=== PATIENT | female | born 1980 | race Caucasian/White ===

== ENCOUNTER 2017-06-05 15:23 | Emergency (ER) | payer BC, OTHER ==
[2017-06-05] MEDS ORDERED: PROTONIX 40 MG IV IV ONE ×2 (16:25→17:07)
[2017-06-05] MEDS ORDERED: Zofran 4 MG/2 ML VIAL IV ONE (16:25)
[2017-06-05] MEDS ORDERED: MORPHINE SULFATE 4 MG INJ IV ONE (16:25)
[2017-06-05] MEDS ORDERED: Sodium Chloride 0.9% 1000 ML 1,000 ML IV STA (16:25)
--- NOTE | 2017-06-05 16:31 | ERPHSYRPT ---
- History of Present Illness Time Seen by Provider: 06/05/17 16:21 Historian: patient, family (mother) Patient Subjective Stated Complaint: pain in ribs and stomach , states this happens from time to time had gastric bypass feb 2013 since then from time to time she gets this pain in upper abdomen under ribs Triage Nursing Assessment: pt alert and oriented x3, ambualtes by self gait is steady, , pupils perrla3, lung sounds clear, bowel sounds present x4, tender to palpation bilateral upper quad of abdomen, skin warm dery and itnact no other abnormalities noted. Physician History: CC: abd pain Hx: Upper abd pain since early this AM. S/P remote bariatric surgery per Dr Mcpherson at [facility]. She has had upper abd pain since this AM. No vomiting. Some nausea. No diarrhea. No chest pain. Not short of breath. Denies alcohol use. She had prior bariatric surgery, cholecystectomy, and hysterectomy. She has had this pain in the past but did not seek attn. She does have hx of PUD. Not currently on ulcer medication. Normal bowel movements. No blood in stool. Normal urination. Timing/Duration: today (AM) Pain Radiation: epigastric Allergies/Adverse Reactions: No Known Drug Allergies Allergy (Unverified 08/19/13 02:26) Hx Tetanus, Diphtheria Vaccination/Date Given: Yes Hx Influenza Vaccination/Date Given: No Hx Pneumococcal Vaccination/Date Given: No Immunizations Up to Date: Yes - Review of Systems Constitutional: Malaise, No Fever, No Chills Eyes: No Symptoms Ears, Nose, & Throat: No Symptoms Respiratory: No Cough, No Dyspnea Cardiac: No Chest Pain Abdominal/Gastrointestinal: Abdominal Pain, Nausea, No Vomiting, No Diarrhea Genitourinary Symptoms: No Dysuria, No Musculoskeletal: No Back Pain Skin: No Rash Neurological: No Headache All Other Systems: Reviewed and Negative - Past Medical History Pertinent Past Medical History: No Neurological History: No Pertinent History ENT History: No Pertinent History Cardiac History: No Pertinent History Respiratory History: No Pertinent History Endocrine Medical History: No Pertinent History Musculoskeletal History: No Pertinent History GI Medical History: Other History: No Pertinent History Psycho-Social History: No Pertinent History Female Reproductive Disorders: No Pertinent History Other Medical History: GASTRIC BYPASS - Past Surgical History Past Surgical History: Yes (see history of present illness) Neuro Surgical History: No Pertinent History Cardiac: No Pertinent History Respiratory: No Pertinent History Gastrointestinal: No Pertinent History Genitourinary: No Pertinent History Musculoskeletal: No Pertinent History Female Surgical History: Hysterectomy - Social History Smoking Status: Never smoker Exposure to second hand smoke: No Drug Use: none Patient Lives Alone: No - Female History Hx Now: (Hysterectomy) - Nursing Vital Signs Nursing Vital Signs: Initial Vital Signs Temperature 98.2 F 06/05/17 15:23 Pulse Rate 62 06/05/17 15:23 Respiratory Rate 18 06/05/17 15:23 Blood Pressure 100/79 06/05/17 15:23 O2 Sat by Pulse Oximetry 99 06/05/17 15:23 Pain Scale Pain Intensity 7 - Physical Exam General Appearance: alert Eye Exam: PERRL/EOMI Ears, Nose, Throat Exam: normal ENT inspection, moist mucous membranes Neck Exam: normal inspection, non-tender, supple Respiratory Exam: normal breath sounds, lungs clear Cardiovascular Exam: regular rate/rhythm, bradycardia, No murmur Gastrointestinal/Abdomen Exam: soft, tenderness (left and upper abdomen), No mass Back Exam: normal inspection, No CVA tenderness Extremity Exam: normal inspection, normal range of motion Neurologic Exam: alert, oriented x 3, cooperative, sensation nml, No motor deficits Skin Exam: warm, dry, No rash SpO2 Interpretation: normal SpO2: 99 Oxygen Delivery: Room Air - Course Nursing assessment & vital signs reviewed: Yes Ordered Tests: Active Orders 24 hr Category Date Time Status Clean Catch Urine Specimen STAT Care 06/05/17 16:25 Active EKG-ER Only STAT Care 06/05/17 16:25 Active IV Insertion STAT Care 06/05/17 16:25 Active NPO (ED) STAT Care 06/05/17 16:25 Active ABDOMEN AND PELVIS W CONTRAST [CT] Stat Exams 06/05/17 18:06 Taken CBC W DIFF Stat Lab 06/05/17 16:55 Completed CMP Stat Lab 06/05/17 16:55 Completed LIPASE Stat Lab 06/05/17 16:55 Completed Lactic Acid Stat Lab 06/05/17 16:55 Completed UA W/RFX UR CULTURE Stat Lab 06/05/17 18:12 Completed Medication Summary Discontinued Medications Generic Name Dose Route Start Last Admin Trade Name Freq PRN Reason Stop Dose Admin Sodium Chloride 1,000 mls @ 999 mls/hr 06/05/17 16:25 06/05/17 17:11 Sodium Chloride 0.9% 1000 Ml IV 06/05/17 17:25 999 mls/hr .Q1H1M STA Administration Sodium Chloride Confirm 06/05/17 17:07 Sodium Chloride 0.9% 1000 Ml Administered 06/05/17 17:08 Dose 1,000 mls @ ud .ROUTE .STK-MED ONE Morphine Sulfate 4 mg 06/05/17 16:25 06/05/17 17:12 Morphine Sulfate 4 Mg Inj IV 06/05/17 16:26 4 mg STAT ONE Administration Morphine Sulfate Confirm 06/05/17 17:07 Morphine Sulfate 4 Mg Inj Administered 06/05/17 17:08 Dose 4 mg .ROUTE .STK-MED ONE Morphine Sulfate Confirm 06/05/17 18:01 Morphine Sulfate 4 Mg Inj Administered 06/05/17 18:02 Dose 4 mg .ROUTE .STK-MED ONE Ondansetron HCl 4 mg 06/05/17 16:25 06/05/17 17:12 Zofran 4 Mg/2 Ml Vial IV 06/05/17 16:26 4 mg STAT ONE Administration Ondansetron HCl Confirm 06/05/17 17:07 Zofran 4 Mg/2 Ml Vial Administered 06/05/17 17:08 Dose 4 mg .ROUTE .STK-MED ONE Ondansetron HCl Confirm 06/05/17 17:43 Zofran 4 Mg/2 Ml Vial Administered 06/05/17 17:44 Dose 4 mg .ROUTE .STK-MED ONE Pantoprazole Sodium 40 mg 06/05/17 16:25 06/05/17 17:12 Protonix 40 Mg Iv IV 06/05/17 16:26 40 mg STAT ONE Administration Pantoprazole Sodium Confirm 06/05/17 17:07 Protonix 40 Mg Iv Administered 06/05/17 17:08 Dose 40 mg IV .STK-MED ONE Lab/Rad Data: Laboratory Result Diagrams 06/05/17 16:55 06/05/17 16:55 Laboratory Results 06/05/17 06/05/17 06/05/17 Range/Units 18:12 16:55 16:55 WBC (4.0-10.5) K/mm3 RBC (4.1-5.4) M/mm3 Hgb (12.0-16.0) gm/dl Hct (35-47) % MCV (78-100) fl MCH (26-32) pg MCHC (32-36) g/dl RDW (11.5-14.0) % Plt Count (150-450) K/mm3 MPV (6-9.5) fl Gran % (36.0-66.0) % Lymphocytes % (24.0-44.0) % Monocytes % (0.0-12.0) % Eosinophils % (0.00-5.0) % Basophils % (0.0-0.4) % Basophils # (0-0.4) Sodium 142 (136-145) mEq/L Potassium 3.2 L (3.5-5.1) mEq/L Chloride 107 (98-107) mEq/L Carbon Dioxide 26.3 (21-32) mEq/L Anion Gap 11.6 (5-15) MEQ/L BUN 10 (9-20) mg/dL Creatinine 0.87 (0.55-1.30) mg/dl Estimated GFR > 60 ML/MIN Glucose 112 H (70-110) MG/DL Lactic Acid 0.8 (0.4-2.0) Calcium 8.7 (8.5-10.1) mg/dL Total Bilirubin 0.40 (0.2-1.0) mg/dL AST 14 L (15-37) U/L ALT 13 (12-78) U/L Alkaline Phosphatase 71 (46-116) U/L Serum Total Protein 6.4 (6.4-8.2) gm/dL Albumin 3.7 (3.4-5.0) g/dL Lipase 140 (73-393) U/L Ur Collection Type CCMS Urine Color YELLOW (YELLOW) Urine Appearance CLEAR (CLEAR) Urine pH 6.0 (5-6) Ur Specific [place] 1.010 (1.005-1.025) Urine Protein NEGATIVE (Negative) Urine Ketones NEGATIVE (NEGATIVE) Urine Blood NEGATIVE (0-5) [place]/ul Urine Nitrite NEGATIVE (NEGATIVE) Urine Bilirubin NEGATIVE (NEGATIVE) Urine Urobilinogen NORMAL (0-1) mg/dL Ur Leukocyte Esterase NEGATIVE (NEGATIVE) Urine Culture Reflexed NO (NO) Urine Glucose NEGATIVE (NEGATIVE) mg/dL Specimen Received 06-05-17 1830 06/05/17 Range/Units 16:55 WBC 5.3 (4.0-10.5) K/mm3 RBC 4.05 L (4.1-5.4) M/mm3 Hgb 12.7 (12.0-16.0) gm/dl Hct 39.1 (35-47) % MCV 96.5 (78-100) fl MCH 31.3 (26-32) pg MCHC 32.5 (32-36) g/dl RDW 12.5 (11.5-14.0) % Plt Count 229 (150-450) K/mm3 MPV 10.0 H (6-9.5) fl Gran % 59.4 (36.0-66.0) % Lymphocytes % 31.3 (24.0-44.0) % Monocytes % 6.2 (0.0-12.0) % Eosinophils % 2.4 (0.00-5.0) % Basophils % 0.7 (0.0-0.4) % Basophils # 0.04 (0-0.4) Sodium (136-145) mEq/L Potassium (3.5-5.1) mEq/L Chloride (98-107) mEq/L Carbon Dioxide (21-32) mEq/L Anion Gap (5-15) MEQ/L BUN (9-20) mg/dL Creatinine (0.55-1.30) mg/dl Estimated GFR ML/MIN Glucose (70-110) MG/DL Lactic Acid (0.4-2.0) Calcium (8.5-10.1) mg/dL Total Bilirubin (0.2-1.0) mg/dL AST (15-37) U/L ALT (12-78) U/L Alkaline Phosphatase (46-116) U/L Serum Total Protein (6.4-8.2) gm/dL Albumin (3.4-5.0) g/dL Lipase (73-393) U/L Ur Collection Type Urine Color (YELLOW) Urine Appearance (CLEAR) Urine pH (5-6) Ur Specific [place] (1.005-1.025) Urine Protein (Negative) Urine Ketones (NEGATIVE) Urine Blood (0-5) [place]/ul Urine Nitrite (NEGATIVE) Urine Bilirubin (NEGATIVE) Urine Urobilinogen (0-1) mg/dL Ur Leukocyte Esterase (NEGATIVE) Urine Culture Reflexed (NO) Urine Glucose (NEGATIVE) mg/dL Specimen Received - Progress Progress Note: 06/05/17 18:39 CT abd/pelvis: conrad 6:34 PM 06/05/2017: Compared to 10/26/11. Mild wall thickening descending, sigmoid, & rectum either incomplete distension vs colitis. No free fluid/air. Normal appy. Interval gastric bypass sx & cholecystectomy. Remaining abd/pel negative. 06/05/17 18:[address] Praful Mcpherson. Will release with PPI and office follow up. Counseled pt/family regarding: lab results, diagnosis, need for follow-up, rad results - Departure Time of Disposition: 18:54 Departure Disposition: Home Clinical Impression: Epigastric abdominal pain, Hx of bariatric surgery Condition: Fair Critical Care Time: No Referrals: LUKE STACY [Primary Care Provider] - ABEL MCPHERSON [NON-STAFF PHY W/O PRIVILEGES] - Instructions: Acute Abdomen (Belly Pain), Adult (DC) Additional Instructions: ABDOMINAL PAIN 1. There are several different causes for abdominal pain, some of which may not be able to be identified on initial examination. 2. The important thing to remember is that bodily functions can change in a short period of time. If you notice any of the following symptoms, return to the emergency department or consult your doctor immediately: A. Worsening pain or no improvement in the next 12 hours. B. Increasing, severe abdominal pain C. Blood in stool D. Black stools E. Persistent vomiting F. Fever or chills or other symptoms Rx protonix. Dukes diet. No driving tonite and stay with family. Call tomorrow to arrange follow up with Dr Mcpherson. Prescriptions: PANTOPRAZOLE 40 mg Tablet [Protonix 40MG Tablet] 40 mg PO QAM #30 tab
[2017-06-05] MEDS ORDERED: Zofran 4 MG/2 ML VIAL ONE ×2 (17:07→17:43)
[2017-06-05] MEDS ORDERED: Sodium Chloride 0.9% 1000 ML 1,000 ML ONE (17:07)
[2017-06-05] MEDS ORDERED: MORPHINE SULFATE 4 MG INJ ONE ×2 (17:07→18:01)
[2017-06-05 17:11] LABS: BASOPHIL % 0.7 % (0.0-0.4); Basophil (Absolute #) 0.04 (0-0.4); Eosinophil % 2.4 % (0.00-5.0); Eosinophil (Absolute #) 0.13 (0-0.5); Granulocyte Absolute (ANC) 3.17 (1.4-6.9); Granulocytes % 59.4 % (36.0-66.0); Hematocrit 39.1 % (35-47); Hemoglobin 12.7 gm/dl (12.0-16.0); Lymphocyte (Absolute #) 1.67 (1.0-4.6); Lymphocytes % 31.3 % (24.0-44.0); Mean Cell Volume 96.5 fl (78-100); Mean Corpuscular Hemoglobin 31.3 pg (26-32); Mean Corpuscular Hgb Concent. 32.5 g/dl (32-36); Monocyte (Absolute #) 0.33 (0.0-1.3); Monocytes % 6.2 % (0.0-12.0); Platelet Count 229 K/mm3 (150-450); Red Blood Count 4.05 M/mm3 (4.1-5.4); Red Cell Distribution Width 12.5 % (11.5-14.0); White Blood Count 5.3 K/mm3 (4.0-10.5)
[2017-06-05 17:40] LABS: ALBUMIN 3.7 g/dL (3.4-5.0); ALKALINE PHOSPHATASE 71 U/L (46-116); ANION GAP 11.6 MEQ/L (5-15); BLOOD UREA NITROGEN 10 mg/dL (9-20); CHLORIDE 107 mEq/L (98-107); Calcium 8.7 mg/dL (8.5-10.1); Carbon Dioxide 26.3 mEq/L (21-32); Creatinine 1 0.87 mg/dl (0.55-1.30); EST GLOMERULAR FILTRATION RATE > 60 ML/MIN; Glucose 112 MG/DL (70-110); LIPASE 140 U/L (73-393); Potassium 3.2 mEq/L (3.5-5.1); SGOT/AST 14 U/L (15-37); SGPT/ALT 13 U/L (12-78); SODIUM 142 mEq/L (136-145); Total Protein 6.4 gm/dL (6.4-8.2)
[2017-06-05 18:30] LABS: Appearance CLEAR (CLEAR); Bilirubin NEGATIVE (NEGATIVE); Blood NEGATIVE Ery/ul (0-5); Glucose NEGATIVE (NEGATIVE); Ketones NEGATIVE (NEGATIVE); Leukocyte Esterase NEGATIVE (NEGATIVE); Nitrite NEGATIVE (NEGATIVE); Protein,Urine Dip NEGATIVE (Negative); Urobilinogen NORMAL mg/dL (0-1)
[2017-06-05 18:53] VITALS: BP 96/63
[2017-06-05 19:00] VITALS: PULSE 62; O2SAT 100
--- NOTE | 2017-06-06 08:35 | XRAY ---
Indication: Upper abdominal pain. Multiple contiguous axial images obtained through the abdomen and pelvis using 80 cc Isovue 370 contrast and diluted Gastrografin. Comparison: CT renal stone study October 26, 2011. Lung bases are clear. Heart is not enlarged. Again small hiatal hernia. Interval gastric bypass surgery and cholecystectomy. Noncontrasted stomach appears unremarkable. Contrasted bowel loops appear nonobstructed. Descending colon, sigmoid, and rectum demonstrates mild circumferential wall thickening either incomplete distention versus colitis. No free fluid/air. Normal air-filled appendix. There has been hysterectomy. Remaining liver, pancreas, spleen, adrenal glands, kidneys, ureters, bladder, and aorta appear normal in CT appearance and attenuation. No pathologic retroperitoneal lymphadenopathy. Osseous structures intact. Impression: 1. Mild descending colon, sigmoid, and rectal wall thickening either incomplete distention versus colitis. 2. Small hiatal hernia. 3. Remaining CT abdomen/pelvis with contrast exam is negative. CT DI 12.29
== END 2017-06-05 19:05 | disposition home or self-care (01) ==
LOC: ED 15:23
DX: R10.13 Epigastric pain (principal); Z98.84 Bariatric surgery status
CPT/HCPCS: 36000; 36415; 74177; 80053; 81002; 83605; 83690; 85025; 96374; 96375; 99283; J2270; J2405

== ENCOUNTER 2018-06-26 07:02 | Emergency (ER) | payer BC, OTHER ==
[2018-06-26 09:19] LABS: Group A Strep NEGATIVE (NEGATIVE); INFLUENZA A NEGATIVE (NEGATIVE); INFLUENZA B NEGATIVE (NEGATIVE); RESPIRATORY SYNCTIAL VIRUS NEGATIVE (Negative)
[2018-06-26 09:25] VITALS: BP 104/70; PULSE 69; O2SAT 98
--- NOTE | 2018-06-26 09:31 | ERPHSYRPT ---
- History of Present Illness Source: patient Exam Limitations: no limitations Patient Subjective Stated Complaint: Pt states "I have head congesion, sinus, ears, my throat feels like it is touching." Triage Nursing Assessment: Pt alert and oriented x 3, skin pwd. Pt ambulates with an upright steady gait, able to speak in clear full sentences. PT in no apparent respiratory distress. Physician History: Pt is a 37 y/o female that presented to the ED, secondary to URI. Pt states, was seen by her PCP, and got Keflex, that she finished. Unfortunately the symptoms did not improve, and she does have sore throat, nasal congestion and cough. As she still not feeling well, she presented to the ER. Timing/Duration: week(s) Cough Quality/Degree: moderate, dry cough Possible Cause: no prior episodes Modifying Factors: Improves With: rest Associated Symptoms: cough, facial pain, headache, muscle aches, nasal congestion, sore throat Allergies/Adverse Reactions: No Known Drug Allergies Allergy (Verified 06/26/18 07:12) Hx Tetanus, Diphtheria Vaccination/Date Given: No Hx Influenza Vaccination/Date Given: No Hx Pneumococcal Vaccination/Date Given: No Immunizations Up to Date: Yes - Review of Systems Constitutional: Fatigue, Malaise Eyes: No Symptoms Ears, Nose, & Throat: Nose Congestion, Throat Pain Respiratory: Cough Cardiac: No Chest Pain, No Edema, No Syncope Abdominal/Gastrointestinal: No Abdominal Pain, No Nausea, No Vomiting, No Diarrhea Genitourinary Symptoms: No Dysuria Musculoskeletal: No Back Pain, No Neck Pain Neurological: No Dizziness, No Focal Weakness, No Sensory Changes - Past Medical History Pertinent Past Medical History: No Neurological History: No Pertinent History ENT History: No Pertinent History Cardiac History: No Pertinent History Respiratory History: No Pertinent History Endocrine Medical History: No Pertinent History Musculoskeletal History: No Pertinent History GI Medical History: Other History: No Pertinent History Psycho-Social History: No Pertinent History Female Reproductive Disorders: No Pertinent History Other Medical History: GASTRIC BYPASS - Past Surgical History Past Surgical History: Yes (see history of present illness) Neuro Surgical History: No Pertinent History Cardiac: No Pertinent History Respiratory: No Pertinent History Gastrointestinal: No Pertinent History Genitourinary: No Pertinent History Musculoskeletal: No Pertinent History Female Surgical History: Hysterectomy - Social History Smoking Status: Never smoker Exposure to second hand smoke: No Drug Use: none Patient Lives Alone: No - Female History Hx Last Menstrual Period: hysterectomy Hx Now: No - Nursing Vital Signs Nursing Vital Signs: Initial Vital Signs Temperature 99.2 F 06/26/18 07:08 Pulse Rate 66 06/26/18 07:08 Respiratory Rate 18 06/26/18 07:08 Blood Pressure 119/83 06/26/18 07:08 O2 Sat by Pulse Oximetry 100 06/26/18 07:08 Pain Scale Pain Intensity 4 - Physical Exam General Appearance: no apparent distress, alert Eye Exam: PERRL/EOMI, eyes nml inspection Ears, Nose, Throat Exam: pharynx normal, moist mucous membranes Neck Exam: normal inspection, non-tender, supple, full range of motion Respiratory Exam: normal breath sounds, lungs clear, No respiratory distress Cardiovascular Exam: regular rate/rhythm, normal heart sounds Gastrointestinal/Abdomen Exam: soft, No tenderness Extremity Exam: normal inspection, normal range of motion Neurologic Exam: alert, oriented x 3, cooperative, normal mood/affect, sensation nml, No motor deficits SpO2: 98 - Course Nursing assessment & vital signs reviewed: Yes Lab/Rad Data: Laboratory Results 06/26/18 Range/Units 08:36 Influenza Type A Ag NEGATIVE (NEGATIVE) Influenza Type B Ag NEGATIVE (NEGATIVE) RSV (PCR) NEGATIVE (Negative) Group A Strep Antibody NEGATIVE (NEGATIVE) - Progress Progress: unchanged Air Movement: good Progress Note: 06/26/18 09:31 Pt was examined, and had no exudates, or facial/sinuses tenderness on palpation. Her lungs were CTA, and PE was unremarkable. Pt had respiratory pannel done, and strep swab. All were negative. Pt was informed, that she has viral illness, and should drink plenty of fluids, and use OTC meds for symptoms relief. Pt should f/u with her PCP. Will see patient in: office Counseled pt/family regarding: need for follow-up - Departure Time of Disposition: 09:34 Departure Disposition: Home Clinical Impression: Viral respiratory illness Condition: Stable Critical Care Time: No Referrals: LUKE STACY [Primary Care Provider] - Additional Instructions: Pt should drink plenty of fluids and use OTC meds for symptoms relief. F/U with PCP.
== END 2018-06-26 09:58 | disposition home or self-care (01) ==
LOC: ED 07:02
DX: J06.9 Acute upper respiratory infection, unspecified (principal)
CPT/HCPCS: 87631; 87651; 99283

== ENCOUNTER 2019-03-08 18:55 | Emergency (ER) | payer BC, OTHER ==
--- NOTE | 2019-03-08 19:28 | ERPHSYRPT ---
- History of Present Illness Time Seen by Provider: 03/08/19 19:06 Source: patient Exam Limitations: no limitations Patient Subjective Stated Complaint: pt states, "My left foot was fine when I went to bed last night. During the middle of the night, my foot felt cold and I started having pain. The pain has gotten worse all day today. Pt states, " it feels like its asleep, feels cold to me (although its not) and just throbs." Triage Nursing Assessment: pt alert and oriented, ambulated to rm 6. Pt c/o lt foot pain, which occured around 0200 and has gotten progressively worse throughout the day. Pt has pain with wt bearing and also at rest. No bruises or edema noted, pt denies falling. Lungs clear, heart tones reg, abd soft with active bs x4 quad. Physician History: 38yo with h/o left foot surgery presented with sudden feeling of cold in left foot with pain since last night. reports feeling cold but is not cold to touch. denies any discoloration. shorp throbbing pain with partial relief after taking OTC pain meds and more with movements. denies any fall or trauma. pain is radiating to left ankle laterally without any associated swelling. no calf pain . Method of Injury: unknown Occurred: yesterday Quality: constant Severity of Pain-Max: moderate Severity of Pain-Current: moderate Lower Extremities Pain: foot: left, ankle: left Modifying Factors: Improves With: movement Allergies/Adverse Reactions: No Known Drug Allergies Allergy (Verified 06/26/18 07:12) Hx Tetanus, Diphtheria Vaccination/Date Given: Yes Hx Influenza Vaccination/Date Given: No Hx Pneumococcal Vaccination/Date Given: No Immunizations Up to Date: Yes - Review of Systems Constitutional: No Symptoms Eyes: No Symptoms Ears, Nose, & Throat: No Symptoms Respiratory: No Symptoms Cardiac: No Symptoms Abdominal/Gastrointestinal: No Symptoms Musculoskeletal: Joint Pain Skin: No Symptoms Neurological: No Symptoms Psychological: No Symptoms Hematologic/Lymphatic: No Symptoms - Past Medical History Pertinent Past Medical History: No Neurological History: No Pertinent History ENT History: No Pertinent History Cardiac History: No Pertinent History Respiratory History: No Pertinent History Endocrine Medical History: No Pertinent History Musculoskeletal History: No Pertinent History GI Medical History: Other History: No Pertinent History Psycho-Social History: No Pertinent History Female Reproductive Disorders: No Pertinent History Other Medical History: GASTRIC BYPASS - Past Surgical History Past Surgical History: Yes (see history of present illness) Neuro Surgical History: No Pertinent History Cardiac: No Pertinent History Respiratory: No Pertinent History Gastrointestinal: Cholecystectomy Genitourinary: No Pertinent History Musculoskeletal: Orthopedic Surgery Female Surgical History: Hysterectomy Other Surgical History: bunionectomy. gastric bypass - Social History Smoking Status: Never smoker Exposure to second hand smoke: No Drug Use: none Patient Lives Alone: No - Female History Hx Last Menstrual Period: hysterectomy Hx Now: No - Nursing Vital Signs Nursing Vital Signs: Initial Vital Signs Temperature 98.0 F 03/08/19 19:03 Pulse Rate 73 03/08/19 19:03 Respiratory Rate 15 03/08/19 19:03 Blood Pressure 114/73 03/08/19 19:03 O2 Sat by Pulse Oximetry 98 03/08/19 19:03 Pain Scale Pain Intensity 7 - Physical Exam General Appearance: no apparent distress Eyes, Ears, Nose, Throat Exam: normal ENT inspection Neck Exam: normal inspection, non-tender, supple Cardiovascular/Respiratory Exam: normal breath sounds, regular rate/rhythm Back Exam: normal inspection, normal range of motion Hips Exam: bilateral: non-tender Legs Exam: bilateral leg: non-tender, normal inspection, normal range of motion , no evidence of injury Knees Exam: bilateral knee: non-tender, normal inspection, normal range of motion Ankle Exam: right ankle: non-tender, left ankle: soft tissue tenderness ( lateral to calcaneus), bilateral ankle: normal inspection, normal range of motion, no evidence of injury, swelling Foot Exam: right foot: non-tender, left foot: abrasions/lacerations (medial foot and big toe area with no erythema/warm/swelling), bilateral foot: normal inspection, normal range of motion, no evidence of injury, soft tissue tenderness Neuro/Tendon Exam: normal sensation, normal motor functions, normal tendon functions Mental Status Exam: alert, oriented x 3, cooperative Skin Exam: normal color SpO2 Interpretation: normal SpO2: 98 O2 Delivery: Room Air - Course Nursing assessment & vital signs reviewed: Yes Ordered Tests: Active Orders 24 hr Category Date Time Status ANKLE (3 VIEWS) Stat Exams 03/08/19 19:20 Taken FOOT (MINIMUM 3 VIEWS) Stat Exams 03/08/19 19:20 Taken - Progress Progress: pain not gone completely, re-examined Progress Note: 03/08/19 19:29 r/o fx/dislocation. has no signs of gout/cellulitis / most probably some ligamentous strain and recommended roseline wrap with regular ibuprofen and outpatient follow up. offered pain meds but she refused. 03/08/19 20:14 Counseled pt/family regarding: diagnosis, need for follow-up, rad results - Departure Departure Disposition: Home Clinical Impression: Strain of left foot Qualifiers: Encounter type: initial encounter Qualified Code(s): S96.912A - Strain of unspecified muscle and tendon at ankle and foot level, left foot, initial encounter Condition: Stable Critical Care Time: No Referrals: LUKE STACY [Primary Care Provider] - Follow Up with PCP/3 days (may need referral for podiatry for re valuation if no improvement or if getting worse ) Instructions: Foot Sprain (DC) Additional Instructions: take tylenol/ibuprofen for pain. follow up with pcp for re evaluation early next week. may need to see your inpatient nursing aide if no improvement in few days . return for any worsening Prescriptions: Ibuprofen 600 mg PO Q6HPRN PRN 10 Days #20 tablet PRN Reason: Pain
[2019-03-08 20:28] VITALS: BP 104/79; PULSE 62; O2SAT 100
--- NOTE | 2019-03-09 08:50 | XRAY ---
Indication: Pain. No known injury. Comparison: None 3 views of the left ankle obtained. No bony, articular, or soft tissue abnormalities. Foot reported separately.
--- NOTE | 2019-03-09 08:50 | XRAY ---
Indication: Pain. No known injury. Comparison: None 3 nonweightbearing views of the left foot demonstrates 1st metatarsal bunionectomy with intact screw. No other bony, articular, or soft tissue abnormalities.
== END 2019-03-08 20:29 | disposition home or self-care (01) ==
LOC: ED 18:55
DX: S96.912A Strain of unspecified muscle and tendon at ankle and foot level, left foot, initial encounter (principal); M25.572 Pain in left ankle and joints of left foot
CPT/HCPCS: 73610; 73630; 99283

== ENCOUNTER 2020-09-22 17:50 | Emergency (ER) | payer BC, OTHER ==
[2020-09-22 18:04] VITALS: BP 115/79; PULSE 98; O2SAT 98
[2020-09-22] MEDS ORDERED: TORAdol 30 mg Injection IM ONE (18:23)
[2020-09-22] MEDS ORDERED: DECADRON 10MG INJ. PO ONE (18:24)
[2020-09-22] MEDS ORDERED: TORAdol 30 mg Injection ONE (18:27)
[2020-09-22] MEDS ORDERED: DECADRON 10MG INJ. ONE (18:27)
--- NOTE | 2020-09-22 18:35 | ERPHSYRPT ---
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 Patient states her job requires a lot of lifting twisting and pulling. Patient had symptoms yesterday. She saw her chiropractor. He diagnosed her with sciatica. Patient received a manipulation however this did not help. Patient took 400 mg of ibuprofen at 3 PM. Patient states the pain is primarily on the left buttock and radiates towards her left foot. Pain rated 8 out of 10. Pain worse with static positions and dynamic motions. Symptoms are mild to moderate in intensity. No change in bowel bladder function. No fever. No recent back procedure. No saddle anesthesia. Patient voices no other complaints or concerns at this time. She is otherwise healthy. Patient states she had a hysterectomy and is not worried about preg sravanthi. Timing/Duration: yesterday Method of Injury: unknown, other (Pain likely states stemming from repetitive motion.) Quality: aching Back Pain Location: lumbar spine Back Pain Radiation: feet (Pain radiates to her left foot.) Severity of Pain-Max: moderate Severity of Pain-Current: mild Modifying Factors: Improves With: movement Associated Symptoms: denies symptoms, No fever, No sweating, No urinary incontinence, No problems urinating, No light-headedness, No dizziness, No numbness in legs/feet, No weakness, No sensory/motor loss, No tingling in legs/feet, No muscle spasms Previous symptoms: other (Patient states she has history of intermittent low back pain.) Allergies/Adverse Reactions: No Known Drug Allergies Allergy (Verified 09/22/20 18:04) Home Medications: Prucalopride Succinate [Motegrity] 2 mg PO DAILY 06/08/21 [History] Hx Tetanus, Diphtheria Vaccination/Date Given: Yes Hx Influenza Vaccination/Date Given: No Hx Pneumococcal Vaccination/Date Given: No Travel Risk - International Travel Have you traveled outside of the country in past 3 weeks: No - Coronavirus Screening Are you exhibiting any of the following symptoms?: No Close contact with a COVID-19 positive Pt in past 14-21 Days: No - Vaccine Status Have you recieved a Covid-19 vaccination: Yes Propagation Worker: Moderna - Vaccination Dates Date of 2cond Vaccination (if applicable): 07/25/2020 - Review of Systems Constitutional: No Symptoms, No Fever, No Chills Eyes: No Symptoms Ears, Nose, & Throat: No Symptoms Respiratory: No Symptoms, No Cough, No Dyspnea Cardiac: No Symptoms, No Chest Pain, No Edema, No Syncope Abdominal/Gastrointestinal: No Symptoms, No Abdominal Pain, No Nausea, No Vomiting, No Diarrhea Genitourinary Symptoms: No Symptoms, No Dysuria Musculoskeletal: No Symptoms, No Back Pain, No Neck Pain Skin: No Symptoms, No Rash Neurological: No Symptoms, No Dizziness, No Focal Weakness, No Sensory Changes Psychological: No Symptoms Endocrine: No Symptoms Hematologic/Lymphatic: No Symptoms Immunological/Allergic: No Symptoms All Other Systems: Reviewed and Negative - Past Medical History Pertinent Past Medical History: Yes Neurological History: No Pertinent History ENT History: No Pertinent History Cardiac History: No Pertinent History Respiratory History: No Pertinent History Endocrine Medical History: No Pertinent History Musculoskeletal History: No Pertinent History GI Medical History: Other History: No Pertinent History Psycho-Social History: No Pertinent History Female Reproductive Disorders: No Pertinent History Other Medical History: GASTRIC BYPASS - Past Surgical History Past Surgical History: Yes (see history of present illness) Neuro Surgical History: No Pertinent History Cardiac: No Pertinent History Respiratory: No Pertinent History Gastrointestinal: Cholecystectomy Genitourinary: No Pertinent History Musculoskeletal: Orthopedic Surgery Female Surgical History: Hysterectomy Other Surgical History: bunionectomy. gastric bypass - Social History Smoking Status: Never smoker Exposure to second hand smoke: No Drug Use: none Patient Lives Alone: No - Female History Hx Now: No - Nursing Vital Signs Nursing Vital Signs: Initial Vital Signs Temperature 98.6 F 09/22/20 17:55 Pulse Rate 98 H 09/22/20 17:55 Blood Pressure 115/79 09/22/20 17:55 O2 Sat by Pulse Oximetry 98 09/22/20 17:55 Pain Scale Pain Intensity [] 8 Pain Intensity 8 - Physical Exam General Appearance: no apparent distress, alert Eye Exam: PERRL/EOMI, eyes nml inspection Neck Exam: normal inspection, non-tender, supple, full range of motion, No meningismus, No midline tenderness Respiratory Exam: normal breath sounds, lungs clear, No respiratory distress Cardiovascular Exam: regular rate/rhythm, normal heart sounds Gastrointestinal Exam: soft, No tenderness, No mass Extremity Exam: normal inspection, normal range of motion, No calf tenderness, No pedal edema Neurologic Exam: alert, oriented x 3, cooperative, steam setter II-XII nml as tested, normal mood/affect, sensation nml, other (Positive straight leg raise left lower extremity.), No motor deficits Skin Exam: normal color, warm, dry, No rash SpO2 Interpretation: normal SpO2: 98 O2 Delivery: Room Air - Course Nursing assessment & vital signs reviewed: Yes - Radiology Exams L-Spine X-ray Interpretation: Teleradiologist Report (Is. Levoscoliosis. Decreased lumbar spine intervertebral disc spaces.) Ordered Tests: Active Orders 24 hr Category Date Time Status LUMBAR LIMITED (2 OR 3 VIEWS) Stat Exams 09/22/20 18:22 Taken UA W/RFX UR CULTURE Stat Lab 09/22/20 18:26 Completed Medication Summary Discontinued Medications Generic Name Dose Route Start Last Admin Trade Name Bora PRN Reason Stop Dose Admin Dexamethasone Sodium Phosphate 10 mg 09/22/20 18:24 09/22/20 18:28 Decadron 10mg Inj. PO 09/22/20 18:25 10 mg STAT ONE Administration Dexamethasone Sodium Phosphate Confirm 09/22/20 18:27 Decadron 10mg Inj. Administered 09/22/20 18:28 Dose 10 mg .ROUTE .STK-MED ONE Ketorolac Tromethamine 30 mg 09/22/20 18:23 09/22/20 18:28 Toradol 30 Mg Injection IM 09/22/20 18:24 30 mg STAT ONE Administration Ketorolac Tromethamine Confirm 09/22/20 18:27 Toradol 30 Mg Injection Administered 09/22/20 18:28 Dose 30 mg .ROUTE .STK-MED ONE Lab/Rad Data: Laboratory Results 09/22/20 Range/Units 18:26 Urine Color YELLOW (YELLOW) Urine Appearance SLIGHTLY CLOUDY (CLEAR) Urine pH 5.0 (5-6) Ur Specific Howell 1.019 (1.005-1.025) Urine Protein NEGATIVE (Negative) Urine Ketones TRACE (NEGATIVE) Urine Blood NEGATIVE (0-5) Kenrick/ul Urine Nitrite NEGATIVE (NEGATIVE) Urine Bilirubin NEGATIVE (NEGATIVE) Urine Urobilinogen 2 (0-1) mg/dL Ur Leukocyte Esterase TRACE (NEGATIVE) Urine WBC (Auto) 3-5 (0-5) /HPF Urine RBC (Auto) NONE (0-2) /HPF U Epithel Cells (Auto) RARE (FEW) /HPF Urine Bacteria (Auto) RARE (NEGATIVE) /HPF Urine Mucus (Auto) SLIGHT (NEGATIVE) /HPF Urine Culture Reflexed NO (NO) Urine Glucose NEGATIVE (NEGATIVE) mg/dL - Progress Progress: improved - Departure Departure Disposition: Home Clinical Impression: Lumbosacral strain, Scoliosis, Sciatica of left side Condition: Stable Critical Care Time: No Referrals: MARII TESFA[facility] [Primary Care Provider] -
[2020-09-22 18:36] LABS: Appearance SLIGHTLY CLOUDY (CLEAR); Bacteria RARE /HPF (NEGATIVE); Bilirubin NEGATIVE (NEGATIVE); Blood NEGATIVE Ery/ul (0-5); Epithelial Cells RARE /HPF (FEW); Glucose NEGATIVE (NEGATIVE); Ketones TRACE (NEGATIVE); Leukocyte Esterase TRACE (NEGATIVE); Mucus SLIGHT /HPF (NEGATIVE); Nitrite NEGATIVE (NEGATIVE); Protein,Urine Dip NEGATIVE (Negative); Specific Gravity 1.019 (1.005-1.025); Urobilinogen 2 mg/dL (0-1)
--- NOTE | 2020-09-23 08:59 | XRAY ---
Indication: Low back pain radiating left leg. No known injury. Comparison: None 3 view lumbar spine demonstrates 5 lumbar segments with mild levorotoscoliosis, minimal L5-S1 disc space narrowing, mild diffuse fecal stasis, cholecystotomy clips, and left abdomen suture material. No other bony, articular, or soft tissue abnormalities.
== END 2020-09-22 19:54 | disposition home or self-care (01) ==
LOC: ED 17:50
DX: S39.012A Strain of muscle, fascia and tendon of lower back, initial encounter (principal); X50.1XXA Overexertion from prolonged static or awkward postures, initial encounter; Y93.89 Activity, other specified; Y92.89 Other specified places as the place of occurrence of the external cause; Y99.0 Civilian activity done for income or pay; M54.40 Lumbago with sciatica, unspecified side; M41.9 Scoliosis, unspecified
CPT/HCPCS: 72100; 81001; 96372; 99284; J1100; J1885

== ENCOUNTER 2023-01-04 21:04 | Emergency (ER) | payer OTHER ==
[2023-01-04 21:22] VITALS: RESP 16; TEMP 98.7
[2023-01-04] MEDS ORDERED: BENADRYL 25 MG CAPSULE PO ONE (21:25)
[2023-01-04] MEDS ORDERED: Pepcid 20 MG VIAL IV ONE ×2 (21:25→21:28)
[2023-01-04] MEDS ORDERED: solu-MEDROL 125 MG, Sterile H2O 10 ml 2 ML IV ONE ×2 (21:25)
[2023-01-04] MEDS ORDERED: BENADRYL 25 MG CAPSULE ONE (21:28)
[2023-01-04] MEDS ORDERED: solu-MEDROL ONE (21:28)
[2023-01-04] MEDS ORDERED: Sterile H2O 10 ml IJ ONE (21:28)
--- NOTE | 2023-01-04 22:33 | ERPHSYRPT ---
- History of Present Illness Time Seen by Provider: 01/04/23 21:20 Source: patient Exam Limitations: no limitations Patient Subjective Stated Complaint: Pt reports for the last 3-4 days she has been itching throughout entire body. Denies any new exposures/foods/etc. Took e quate cold and flu last week but has had med before without any problems. Triage Nursing Assessment: Pt alert and oriented x3. No apparent respiratory distress. Ambulated to ED cot without difficulty. Accompanied by mom. Pt observed to be itching legs continuously, red itch anand visualized on bilat lower extremities and upper extremities, no obvious hives/pustules seen. Physician History: Patient is a 42-year-old female presents to our ED for evaluation and treatment of pruritus x3 to 4 days. Patient has been self-medicating with Benadryl. Transient improvement however pruritus reoccurs. No obvious exposures. No new products. No intraoral lesions. No difficulty breathing. No wheezing. No abdominal cramping. Patient is itching throughout her body her trunk legs feet and hands. No other complaints. Mother at bedside. She voices no other complaints or concerns at this time. Portions of this note were created with voice recognition technology. There may be grammatical, spelling, punctuation or sound alike errors Timing/Duration: day(s) (3 days) Severity: moderate Modifying Factors: Improves With: medication (Benadryl) Associated Symptoms: denies symptoms Allergies/Adverse Reactions: No Known Drug Allergies Allergy (Verified 01/04/23 21:09) Hx Tetanus, Diphtheria Vaccination/Date Given: (unknown) Hx Influenza Vaccination/Date Given: No Hx Pneumococcal Vaccination/Date Given: No Travel Risk - International Travel Have you traveled outside of the country in past 3 weeks: No - Coronavirus Screening Are you exhibiting any of the following symptoms?: No Close contact with a COVID-19 positive Pt in past 14-21 Days: No - Vaccine Status Have you recieved a Covid-19 vaccination: Yes Hand Shaper: Moderna - Vaccination Dates Date of 2cond Vaccination (if applicable): ? - Review of Systems Constitutional: No Symptoms, No Fever, No Chills Eyes: No Symptoms Ears, Nose, & Throat: No Symptoms Respiratory: No Symptoms, No Cough, No Dyspnea Cardiac: No Symptoms, No Chest Pain, No Edema, No Syncope Abdominal/Gastrointestinal: No Symptoms, No Abdominal Pain, No Nausea, No Vomiting, No Diarrhea Genitourinary Symptoms: No Symptoms, No Dysuria Musculoskeletal: No Symptoms, No Back Pain, No Neck Pain Skin: No Symptoms, No Rash Neurological: No Symptoms, No Dizziness, No Focal Weakness, No Sensory Changes Psychological: No Symptoms Endocrine: No Symptoms Hematologic/Lymphatic: No Symptoms Immunological/Allergic: No Symptoms All Other Systems: Reviewed and Negative - Past Medical History Pertinent Past Medical History: Yes Neurological History: No Pertinent History ENT History: No Pertinent History Cardiac History: No Pertinent History Respiratory History: No Pertinent History Endocrine Medical History: No Pertinent History Musculoskeletal History: No Pertinent History GI Medical History: Other History: No Pertinent History Psycho-Social History: No Pertinent History Female Reproductive Disorders: No Pertinent History Other Medical History: GASTRIC BYPASS - Past Surgical History Past Surgical History: Yes (see history of present illness) Neuro Surgical History: No Pertinent History Cardiac: No Pertinent History Respiratory: No Pertinent History Gastrointestinal: Cholecystectomy Genitourinary: No Pertinent History Musculoskeletal: Orthopedic Surgery Female Surgical History: Hysterectomy Other Surgical History: bunionectomy. gastric bypass - Social History Smoking Status: Never smoker Exposure to second hand smoke: No Drug Use: none Patient Lives Alone: No - Female History Hx Last Menstrual Period: hysterectomy 2009 Hx Now: No - Nursing Vital Signs Nursing Vital Signs: Initial Vital Signs Temperature 98.7 F 01/04/23 21:09 Pulse Rate 86 01/04/23 21:09 Respiratory Rate 16 01/04/23 21:09 Blood Pressure 98/55 01/04/23 21:09 O2 Sat by Pulse Oximetry 97 01/04/23 21:09 Pain Scale Pain Intensity 0 - Physical Exam General Appearance: no apparent distress, alert Eye Exam: PERRL/EOMI, eyes nml inspection Ears, Nose, Throat Exam: normal ENT inspection, TMs normal, pharynx normal, moist mucous membranes Neck Exam: normal inspection, non-tender, supple, full range of motion Respiratory Exam: normal breath sounds, lungs clear, No respiratory distress Cardiovascular Exam: regular rate/rhythm, normal heart sounds, normal peripheral pulses Gastrointestinal/Abdomen Exam: soft, normal bowel sounds, No tenderness, No mass Back Exam: normal inspection, normal range of motion, No CVA tenderness, No vertebral tenderness Extremity Exam: normal inspection, normal range of motion, pelvis stable Neurologic Exam: alert, oriented x 3, cooperative, normal mood/affect, nml cerebellar function, nml station & gait, sensation nml, No motor deficits Skin Exam: normal color, warm, dry, No rash Lymphatic Exam: No adenopathy SpO2 Interpretation: normal SpO2: 98 O2 Delivery: Room Air - Course Nursing assessment & vital signs reviewed: Yes Ordered Tests: Active Orders 24 hr Category Date Time Status IV Insertion STAT Care 01/04/23 21:25 Active Medication Summary Discontinued Medications Generic Name Dose Route Start Last Admin Trade Name Bora PRN Reason Stop Dose Admin Methylprednisolone Sodium 0 mg 01/04/23 21:25 01/04/23 21:29 Succinate 125 mg/ Sterile IV 01/04/23 21:26 125 mg Water 2 ml STAT ONE Administration Diphenhydramine HCl 25 mg 01/04/23 21:25 01/04/23 21:30 Diphenhydramine Hcl 25 Mg Capsule PO 01/04/23 21:26 25 mg STAT ONE Administration Diphenhydramine HCl Confirm 01/04/23 21:28 Diphenhydramine Hcl 25 Mg Capsule Administered 01/04/23 21:29 Dose 25 mg .ROUTE .STK-MED ONE Famotidine 20 mg 01/04/23 21:25 01/04/23 21:30 Famotidine 20 Mg/1 Vial IV 01/04/23 21:26 20 mg STAT ONE Administration Famotidine Confirm 01/04/23 21:28 Famotidine 20 Mg/1 Vial Administered 01/04/23 21:29 Dose 20 mg IV .STK-MED ONE Methylprednisolone Sodium Succinate Confirm 01/04/23 21:28 Methylprednis Sod Succ 125 Mg/2 Ml Vial Administered 01/04/23 21:29 Dose 125 mg .ROUTE .STK-MED ONE Sterile Water Confirm 01/04/23 21:28 Water For Injection,Sterile 10 Ml Vial Administered 01/04/23 21:29 Dose 10 ml IJ .STK-MED ONE - Progress Progress: improved Progress Note: 42-year-old female presents emergency department for evaluation of pruritus. Physical exam reveals intact skin. No open or draining lesions. There are some superficial scratch anand on her legs from where she has been scratching. No open or draining lesions. No other systemic manifestations. No respiratory complaints. Patient otherwise healthy. Patient treated with Pepcid Benadryl a nd Solu-Medrol. Patient significantly improved. Patient states he is ready for discharge. A prescription for prednisone and EpiPen forwarded to patient's pharmacy. Mother at bedside. They voiced no other complaints or concerns at this time. Portions of this note were created with voice recognition technology. There may be grammatical, spelling, punctuation or sound alike errors Complexity of problems addressed is moderate acute complicated. Stomach manifestations observed Complexity of data reviewed and analyzed as noted. No specialized testing ordered. Diagnosis made based on history and physical exam. Risk complication and or risk morbidity/mortality of patient management is moderate. Prescriptions forwarded to patient's pharmacy for EpiPen and prednisone We will discharge home. Vital stable. Time spent to discharge patient is approximately 15 minutes. Plan of care established for shared decision making. No social determinants of health present SONOGRAPHER follow-up. Patient voices no other complaints or concerns at this time. She agrees to follow-up with a primary care doctor within 48 hours for evaluation. Portions of this note were created with voice recognition technology. There may be grammatical, spelling, punctuation or sound alike errors 01/04/23 22:56 Counseled pt/family regarding: diagnosis, need for follow-up - Departure Departure Disposition: Home Clinical Impression: Allergic reaction, Pruritus Condition: Stable Critical Care Time: No Referrals: DOCTOR,NO FAMILY [Primary Care Provider] - Follow up/PCP as directed JULIO ANGEL MD [ACTIVE STAFF] - Follow up/PCP as directed Additional Instructions: Discharge/Care Plan NIESHA CASTRO RISHABH was seen on 01/04/23 in the Emergency Room. The patient was counseled regarding Diagnosis,Lab results, Imaging studies, need for follow up and when to return to the Emergency Room. Prescriptions given: Discharge Note I have spoken with the patient and/or caregivers. I have explained the patient's condition, diagnosis and treatment plan based on the information available to me at this time. I have answered the patient's and/or caregiver's questions and addressed any concerns. The patient and/or caregivers have as good understanding of the patient's diagnosis, condition and treatment plan as can be expected at this point. The vital signs have been stable. The patient's condition is stable and appropriate for discharge from the emergency department. The patient will pursue further outpatient evaluation with the primary care physician or other designated or consulting physician as outlined in the discharge instructions. The patient and/or caregivers are agreeable to this plan of care and follow-up instructions have been explained in detail. The patient and/or caregivers have received these instruction. The patient/and or caregivers are aware that any significant change in condition or worsening of symptoms should prompt an immediate return to this or the closest emergency department or call 911. Prescriptions: Prednisone 10 mg [Deltasone 10 mg] 40 mg PO DAILY 3 Days #12 tablet EPINEPHrine [Epipen 2-Alfredo] 0.3 mg IJ DAILY 1 Days #1 packet
[2023-01-04 23:00] VITALS: BP 104/75; PULSE 60
[2023-01-04 23:01] VITALS: O2SAT 98
== END 2023-01-04 23:08 | disposition home or self-care (01) ==
LOC: ED 21:04
DX: T78.40XA Allergy, unspecified, initial encounter (principal); L29.9 Pruritus, unspecified; Z79.52 Long term (current) use of systemic steroids
CPT/HCPCS: 36000; 96374; 96375; 99283; J2930; A9270-GY

== ENCOUNTER 2024-05-04 15:10 | Emergency (ER) | payer BC, OTHER ==
[2024-05-04 15:26] VITALS: PULSE 65; TEMP 97.4; O2SAT 99
--- NOTE | 2024-05-04 16:03 | ERPHSYRPT ---
- History of Present Illness Time Seen by Provider: 05/04/24 15:50 Historian: patient Exam Limitations: no limitations Patient Subjective Stated Complaint: lower back pain that has sharp pains shooting down to her groin, pressure in between shoulder blades and up the neck, nausea Triage Nursing Assessment: Pt brought self to the ER, vitals wnl, rates pain as 7/10, pulses normal, skin n/w/d, last bm yesterday..diarrhea, last intake last night, pain since Monday and it has been getting worse, low abdominal pain, tender with palpatation, still has appendix, hx of sciatica Physician History: 43yo f presents to ED via private vehicle for lower abdominal fullness and some dysuria. Pt reports these sx have been ongoing for the past several days, states she was seen at urgent care 3d ago and was started on macrobid for UTI. Pt reports no improvement in sx. Pt also endorses some tight upper back muscles and a dull tension type CARUSO, denies any vision changes, vomiting, photophobia. Pt denies any hematuria, diarrhea, does endorse some urinary frequency. Pt has hx of multiple abdominal surgeries including hysterectomy. Timing/Duration: day(s) (3) Activities at Onset: none Quality: fullness Abdominal Pain Onset Location: RLQ, LLQ Pain Radiation: no radiation Severity of Pain-Max: moderate Severity of Pain-Current: mild Modifying Factors: Improves With: nothing Associated Symptoms: nausea, No back, No chest pain, No diaphoresis, No diarrhea, No fever/chills, No shortness of breath, No vomiting Allergies/Adverse Reactions: No Known Drug Allergies Allergy (Verified 05/04/24 15:26) Home Medications: Lactulose 45 ml PO DAILY 05/04/24 [History] Nitrofurantoin Macrocrystal [Nitrofurantoin] 100 mg PO BID 05/04/24 [History] Sucralfate 1 gm [Carafate 1 GM] 1 g PO ACHS 05/04/24 [History] Hx Tetanus, Diphtheria Vaccination/Date Given: (unknown) Hx Influenza Vaccination/Date Given: No Hx Pneumococcal Vaccination/Date Given: No Travel Risk - International Travel Have you traveled outside of the country in past 3 weeks: No - Emerging Infectious Disease Are you exhibiting symptoms associated with any current EIDs: Yes Symptoms: Abdominal Pain - Review of Systems Constitutional: No Symptoms Respiratory: No Symptoms Cardiac: No Symptoms Abdominal/Gastrointestinal: Abdominal Pain, Nausea, No Vomiting, No Diarrhea Genitourinary Symptoms: Dysuria, Frequency - Past Medical History Pertinent Past Medical History: Yes Neurological History: No Pertinent History ENT History: No Pertinent History Cardiac History: No Pertinent History Respiratory History: No Pertinent History Endocrine Medical History: No Pertinent History Musculoskeletal History: No Pertinent History GI Medical History: Other History: No Pertinent History Psycho-Social History: No Pertinent History Female Reproductive Disorders: No Pertinent History Other Medical History: GASTRIC BYPASS - Past Surgical History Past Surgical History: Yes (see history of present illness) Neuro Surgical History: No Pertinent History Cardiac: No Pertinent History Respiratory: No Pertinent History Gastrointestinal: Cholecystectomy Genitourinary: No Pertinent History Musculoskeletal: Orthopedic Surgery Female Surgical History: Hysterectomy Other Surgical History: bunionectomy. gastric bypass - Female History Hx Last Menstrual Period: hysterectomy Hx Now: No - Social History Smoking Status: Never smoker Exposure to second hand smoke: No Drug Use: none Patient Lives Alone: No - Social Determinants of Health Will the patient participate in the screening: Yes Do you worry about a steady place to live?: No Do you have any problems with any of the following?: No known problems In the past 12 months,have you had to go without utilities?: No Transportation Issues: No Has anyone in your support network made you feel unsafe?: No Have you or anyone in your house had to go without enough: No - Nursing Vital Signs Nursing Vital Signs: Initial Vital Signs Temperature 97.4 F 05/04/24 15:16 Pulse Rate 65 05/04/24 15:16 Blood Pressure 107/80 05/04/24 15:16 O2 Sat by Pulse Oximetry 99 05/04/24 15:16 Pain Scale Pain Intensity 7 - Physical Exam General Appearance: no apparent distress, alert Respiratory Exam: normal breath sounds, lungs clear, airway intact, No chest tenderness, No respiratory distress Cardiovascular Exam: regular rate/rhythm, normal heart sounds, normal peripheral pulses Gastrointestinal/Abdomen Exam: soft, normal bowel sounds, No tenderness, No distention, No guarding, No rebound Back Exam: normal inspection, No CVA tenderness Neurologic Exam: alert, oriented x 3, cooperative SpO2 Interpretation: normal SpO2: 99 O2 Delivery: Room Air Ordered Tests: Active Orders 24 hr Category Date Time Status ABDOMEN AND PELVIS W/0 CONTRAS [CT] Stat Exams 05/04/24 16:01 Completed CBC W DIFF Stat Lab 05/04/24 16:25 Completed CMP Stat Lab 05/04/24 16:25 Completed UA W/RFX UR CULTURE Stat Lab 05/04/24 16:02 Completed Medication Summary Discontinued Medications Generic Name Dose Route Start Last Admin Trade Name Bora PRN Reason Stop Dose Admin Ceftriaxone Sodium 1,000 mg 05/04/24 17:07 05/04/24 17:16 Ceftriaxone Sodium 1000 Mg Inj Vial IM 05/04/24 17:08 1,000 mg STAT ONE Administration Ceftriaxone Sodium Confirm 05/04/24 17:13 Ceftriaxone Sodium 1000 Mg Inj Vial Administered 05/04/24 17:14 Dose 1,000 mg .ROUTE .STK-MED ONE Droperidol 1.25 mg 05/04/24 16:00 05/04/24 16:16 Droperidol 5 Mg/2 Ml Vial IV 05/04/24 16:01 1.25 mg STAT ONE Administration Droperidol Confirm 05/04/24 16:14 Droperidol 5 Mg/2 Ml Vial Administered 05/04/24 16:15 Dose 5 mg .ROUTE .STK-MED ONE Lidocaine HCl Confirm 05/04/24 17:13 Lidocaine Hcl 1% 20 Ml Mdv 20 Ml Ml Administered 05/04/24 17:14 Dose 3 ml .ROUTE .STK-MED ONE Lab/Rad Data: Laboratory Result Diagrams 05/04/24 16:25 05/04/24 16:25 Laboratory Results 05/04/24 05/04/24 05/04/24 Range/Units 16:25 16:25 16:02 WBC 4.0 (3.98-10.04) x10^3/uL RBC 4.12 (3.93-5.22) x10^6/uL Hgb 12.2 (11.2-15.7) g/dL Hct 37.7 (34.1-44.9) % MCV 91.5 (79.4-94.8) fL MCH 29.6 (25.6-32.2) pg MCHC 32.4 (32.2-35.5) g/dL RDW 14.6 H (11.7-14.4) % Plt Count 284 (182-369) x10^3/uL MPV 9.8 (9.4-12.3) fL Gran % 54.4 (34.0-71.1) % Immature Gran % (Auto) 0.3 (0.001-0.429) % Nucleat RBC Rel Count 0.0 (0.00-0.2) % Eos # (Auto) 0.13 (0.04-0.36) x10^3/uL Immature Gran # (Auto) 0.01 (0.001-0.031) x10^3u/L Absolute Lymphs (auto) 1.31 (1.18-3.74) x10^3/uL Absolute Monos (auto) 0.31 (0.24-0.86) x10^3/uL Absolute Nucleated RBC 0.00 (0.00-0.012) x10^3u/L Lymphocytes % 33.2 (19.3-51.7) % Monocytes % 7.8 (4.7-12.5) % Eosinophils % 3.3 (0.7-5.8) % Basophils % 1.0 (0.1-1.2) % Absolute Granulocytes 2.15 (1.56-6.13) x10^3/uL Basophils # 0.04 (0.01-0.08) x10^3/uL Sodium 139 (135-145) mmol/L Potassium 3.5 (3.5-5.1) mmol/L Chloride 109 H (98-107) mmol/L Carbon Dioxide 25 (22-30) mmol/L Anion Gap 9.6 (5-15) MEQ/L BUN 7 (7-17) mg/dL Creatinine 0.95 (0.52-1.04) mg/dL Estimated GFR 75.3 ML/MIN Glucose 97 (74-106) mg/dL Calcium 9.0 (8.4-10.2) mg/dL Total Bilirubin 0.50 (0.2-1.3) mg/dL AST 24 (14-36) U/L ALT 10 (0-35) U/L Alkaline Phosphatase 68 (38-126) U/L Serum Total Protein 6.7 (6.3-8.2) g/dL Albumin 4.0 (3.5-5.0) g/dL Urine Color Yellow (Yellow) Urine Appearance Cloudy A (Clear) Urine pH 5.5 (4.6-8.0) Ur Specific Mchenry 1.020 (1.005-1.030) Urine Protein Negative (Negative) Urine Glucose (UA) Negative (Negative) mg/dL Urine Ketones 15 A (Negative) Urine Blood Negative (Negative) Urine Nitrite Negative (Negative) Urine Bilirubin Negative (Negative) Urine Urobilinogen 0.2 (0.2) mg/dL Ur Leukocyte Esterase Negative (Negative) U Hyaline Cast (Auto) NONE SEEN (0-2) /LPF Urine Microscopic RBC 0-2 (0-5) /HPF Urine Microscopic WBC 6-10 A (0-5) /HPF Ur Epithelial Cells Moderate A (None Seen) /HPF Urine Bacteria Rare A (None Seen) /HPF Urine Culture Reflexed NO (NO) - Progress Progress: improved Progress Note: 05/04/24 17:31 CT abd/pel showed Multiple small scattered mesenteric lymph nodes, with relative central mesenteric edema, may represent ongoing diffuse inflammatory process, clinical and lab correlation is advised. UA suggestive of UTI labs otherwise unremarkable given 1 dose IM rocephin for UTI given 1 dose droperidol for CARUSO and nausea w/ symptom resolution plan for dc home w/ PCP follow up this week (Ronan) will send prescription for cefdnir x 6 days 300mg twice a day for UTI, stop current macrobid recommend plenty of oral hydration w/ clear liquids and electrolyte containing fluids recommend tylenol/ibuprofen for discomfort return to ED if: develop pain that is unbearable, develop fevers that do not respond to tylenol, develop vomiting or diarrhea that does not resolve, develop bloody vomiting or stools Counseled pt/family regarding: lab results, diagnosis, need for follow-up, rad results Medical Desision Making - Diagnostic Testing Diagnostic test were ordered, analyzed, and reviewed by me: Yes Radiological Interpretation: Reviewed by me, Teleradiologist Report - Risk of complications Minimal Risk: Minimal risk of morbidity Low Risk: Low risk of morbidity from additional dx testing or treatment - Departure Departure Disposition: Home Clinical Impression: UTI (urinary tract infection) Qualifiers: Urinary tract infection type: acute cystitis Hematuria presence: without hematuria Qualified Code(s): N30.00 - Acute cystitis without hematuria Abdominal pain Qualifiers: Abdominal location: lower abdomen, unspecified Qualified Code(s): R10.30 - Lower abdominal pain, unspecified Condition: Stable Critical Care Time: No Referrals: SARAH VÁSQUEZ MD [Primary Care Provider] - Follow up/PCP as directed Additional Instructions: plan for dc home w/ PCP follow up this week (Ronan) will send prescription for cefdnir x 6 days 300mg twice a day for UTI, stop current macrobid recommend plenty of oral hydration w/ clear liquids and electrolyte containing fluids recommend tylenol/ibuprofen for discomfort return to ED if: develop pain that is unbearable, develop fevers that do not respond to tylenol, develop vomiting or diarrhea that does not resolve, develop bloody vomiting or stools Prescriptions: Cefdinir 300 mg PO BID 6 Days #12 cap
[2024-05-04 16:11] LABS: Appearance Cloudy (Clear); Bacteria Rare /HPF (None Seen); Bilirubin Negative (Negative); Blood Negative (Negative); Epithelial Cells Moderate /HPF (None Seen); Glucose, Urine Negative (Negative); Hyaline Casts NONE SEEN /LPF (0-2); Ketones 15 (Negative); Leukocyte Esterase Negative (Negative); Nitrite Negative (Negative); Ph 5.5 (4.6-8.0); Protein,Urine Dip Negative (Negative); RBC 0-2 /HPF (0-5); Urobilinogen 0.2 mg/dL (0.2)
[2024-05-04 16:32] LABS: Absolute Neutrophil Ct (ANC) 2.15 x10^3/uL (1.56-6.13); Basophil (Absolute #) 0.04 x10^3/uL (0.01-0.08); Eosinophil % 3.3 % (0.7-5.8); Eosinophil (Absolute #) 0.13 x10^3/uL (0.04-0.36); Hematocrit 37.7 % (34.1-44.9); Hemoglobin 12.2 g/dL (11.2-15.7); IMMATURE GRAN # 0.01 x10^3u/L (0.001-0.031); IMMATURE GRAN % 0.3 % (0.001-0.429); Lymphocyte (Absolute #) 1.31 x10^3/uL (1.18-3.74); Lymphocytes % 33.2 % (19.3-51.7); Mean Cell Volume 91.5 fL (79.4-94.8); Mean Corpuscular Hemoglobin 29.6 pg (25.6-32.2); Mean Corpuscular Hgb Concent. 32.4 g/dL (32.2-35.5); Mean Platelet Volume 9.8 fL (9.4-12.3); Monocyte (Absolute #) 0.31 x10^3/uL (0.24-0.86); Monocytes % 7.8 % (4.7-12.5); Neutrophil % 54.4 % (34.0-71.1); Platelet Count 284 x10^3/uL (182-369); Red Blood Count 4.12 x10^6/uL (3.93-5.22); Red Cell Distribution Width 14.6 % (11.7-14.4)
[2024-05-04 16:47] LABS: ANION GAP 9.6 MEQ/L (5-15); BILIRUBIN,TOTAL 0.5 mg/dL (0.2-1.3); Creatinine 1 0.95 mg/dL (0.52-1.04); EST GLOMERULAR FILTRATION RATE 75.3 ML/MIN; Potassium 3.5 mmol/L (3.5-5.1); Total Protein 6.7 g/dL (6.3-8.2)
--- NOTE | 2024-05-04 17:11 | XRAY ---
CLINICAL HISTORY: low back pain, low abdominal pressu COMPARISON: No prior studies available for comparison. TECHNIQUE: CT of the abdomen and pelvis was performed, with the following protocol: axial images, and reconstructed coronal and sagittal images. No intravenous contrast was administered. One of the following dose reduction techniques was utilized for this exam: Automated exposure control, adjustment of the mA and/or kV according to patient size, and use of iterative reconstruction. CTDI: 5.94mGy, DLP: 313.28mGy*cm. FINDINGS: Abdomen: Liver: Normal in size, shape, and density. No focal lesions, cysts, or masses were identified. Gallbladder and Biliary System: The gallbladder is removed. Pancreas: Pancreatic head, body, and tail are visualized and appear normal in size and density. No pancreatic masses or calcifications were noted. Spleen: Normal in size, shape, and density. No splenic lesions or masses were identified. Kidneys and Adrenal Glands: Both kidneys are normal in size, shape, and position. Cortical thickness is within normal limits. No renal calculi or hydronephrosis. Adrenal glands are unremarkable. Appendix: The appendix not clearly seen. No adelaida appendiceal fat stranding. No evidence of appendiceal abscess or perforation. Pelvis: Urinary Bladder: Normal in contour and wall thickness. No intraluminal lesions. Uterus: Not seen. Ovaries: Not well visualized but no gross abnormalities noted. Vagina: Normal in contour and wall thickness. Cervix: No evidence of mass or abnormal thickening. Peritoneal and Retroperitoneal Structures: Multiple Small scattered mesenteric lymph nodes, with central mesenteric edema, may represent ongoing diffuse inflammatory process, clinical and lab correlation is advised. Bowel: Mobile cecum, with lower pelvic location. The visualized bowel loops are normal in caliber and appearance. No evidence of bowel obstruction or wall thickening. Prior gastric sleeve procedure. Bones and Soft Tissues: Pelvic bones and soft tissues are unremarkable. No fractures or abnormal masses were identified. IMPRESSION: Multiple small scattered mesenteric lymph nodes, with relative central mesenteric edema, may represent ongoing diffuse inflammatory process, clinical and lab correlation is advised. Electronically Signed by: Latosha Santos MD. (05/04/2024 17:06:06 EST)
[2024-05-04] MEDS ORDERED: Rocephin 1000 MG INJ ONE (17:13)
[2024-05-04] MEDS ORDERED: XYLOCAINE 1% HCL 20 ML MDV ONE (17:13)
[2024-05-04] MEDS: Rocephin 1000 MG INJ IM ONE (17:16)
[2024-05-04 17:41] VITALS: BP 101/71
== END 2024-05-04 17:52 | disposition home or self-care (01) ==
LOC: ED 15:10
DX: N30.00 Acute cystitis without hematuria (principal); R10.30 Lower abdominal pain, unspecified; R30.0 Dysuria; R51.9 Headache, unspecified; Z79.899 Other long term (current) drug therapy
CPT/HCPCS: 36415; 74176; 80053; 81001; 85025; 96372; 96374; 99284; J0696